=== PATIENT | female | born 1975 | race Caucasian/White ===

== ENCOUNTER 2022-08-27 08:58 | Outpatient (CLI) | payer OTHER, SELFPAY ==
--- NOTE | 2022-08-27 09:15 | CRLHL7_ITS ---
For Patients: As a result of the Century Cures Act, medical imaging exams and procedure reports are released immediately into your electronic medical record. You may view this report before your referring provider. If you have questions, please contact your health care provider. ULTRASOUND-GUIDED BREAST BIOPSY AND POST-BIOPSY DIGITAL MAMMOGRAM FOR BIOPSY MARKER PLACEMENT CLINICAL HISTORY: Indeterminate solid nodule. COMPARISON STUDIES: 08/20/2022. TECHNIQUE: Real-time ultrasound with image documentation was used for targeting the breast lesion. Core biopsy specimens were obtained using an automated gun with a 18-gauge biopsy needle. Post-biopsy CC and ML digital mammograms were obtained to document position of the biopsy marker. CONSENT and TIME OUT: The procedure, risks, and alternatives were explained to the patient and a consent was signed. Oxford Protocol was followed including pre-procedure verification that relevant information/documentation was available, reviewed and properly matched to the patient; consent accurate and complete; and equipment and supplies available. Time Out was conducted just prior to starting procedure to verify the four required elements: patient identity, correct side/site marked (if applicable), procedure, relevant images/results properly labeled and displayed (if applicable). PROCEDURE: The patient was positioned supine on the ultrasound table. The breast was prepped with ChloraPrep. 8 cc of 1 percent lidocaine was used for local anesthesia. Core samples were obtained. A sterile metal biopsy clip was placed percutaneously to stepan the lesion position within the breast. The specimens were placed in 10% formalin and sent to the pathology department. Pressure was held on the biopsy site until all bleeding subsided. The skin incision was closed with Steri-Strips. An ice pack was positioned over the biopsy site. Post-biopsy instructions were reviewed with the patient, and a written copy was given to her. LATERALITY: LEFT. LESION: Lobular hypoechoic solid nodule measuring 1.4 x 0.5 x 0.9 cm at 9 o`clock 1 cm from the nipple. SUSPICION FOR MALIGNANCY: Medium, probable fibroadenoma. NUMBER OF SAMPLES: 5. BIOPSY CLIP SHAPE: Oval. PROXIMITY OF CLIP TO TARGET: Within the lesion. IMPRESSION: Ultrasound-guided breast biopsy. When the pathology report is available, an addendum to this report will be made. ACR not applicable Dictated by Hosea Avery MD @ 08/27/2022 12:48:00 PM jj/Dictated by: Hosea Avery MD @ 08/27/2022 12:48:00 PM (Electronically Signed) ----ADDENDUM---- Pathology consistent with fibroadenoma. Negative for atypia and malignancy. This is concordant. Resume annual BILATERAL screening mammography. Dictated by: Hosea Avery MD @09/01/2022 12:17:35 PM Signed by:?Hosea Avery MD @09/01/2022 1:23:17 PM (Electronic Signature)
--- NOTE | 2022-08-27 10:00 | CRLHL7_ITS ---
For Patients: As a result of the Century Cures Act, medical imaging exams and procedure reports are released immediately into your electronic medical record. You may view this report before your referring provider. If you have questions, please contact your health care provider. PLEASE SEE ULTRASOUND-GUIDED LEFT BREAST BIOPSY PERFORMED SAME DAY CRL:armando roberts/Dictated by: Hosea Avery MD @ 08/27/2022 1:03:00 PM (Electronically Signed)
--- NOTE | 2022-09-03 08:43 | ONC.NURNOTE ---
Pathology reviewed with pt 08/31/22; questions answered.
== END 2022-08-27 08:59 | disposition home or self-care (01) ==
PROVIDERS: PCP Physician Assistant Medical; Visit Provider Physician Assistant Medical
DX: N63.20 Unspecified lump in the left breast, unspecified quadrant (principal); D24.2 Benign neoplasm of left breast; R92.8 Other abnormal and inconclusive findings on diagnostic imaging of breast
CPT/HCPCS: 19083; 77065; 88305; A4648; A4649

== ENCOUNTER 2024-10-16 09:53 | Day surgery (SDC) | payer BC, SELFPAY ==
--- OUTSIDE RECORDS SUMMARY | 2024-10-16 09:58 | XMS_ITS | Clinical Summary ---
Author Organization [facility] Address [address] [place] [id number] Care Team Providers Care Sales Service Assistant Name Role Phone Marlena Montejo Primary Care Provider Allergies Active Allergy Reactions Criticality Noted Date Comments Penicillins Rash 09/17/2014 Medications No known medications Active Problems Problem Noted Date Diagnosed Date Pap smear for cervical cancer screening Overview (09/12/2021): 07/2021 NIL/HPV negative. Plan: Pap/HPV due 07/2026 Encounters Date Type Department Care Team Description 10/13/2024 10:10 AM ROADABILITY MACHINE OPERATOR Office Visit [facility] [address] [place] [address] Marlena Montejo PA Preoperative Exam (L breast) 10/13/2024 Travel 10/10/2024 1:00 PM ROADABILITY MACHINE OPERATOR Office Visit [facility] [address] [place] [address] Viola Ferrell MD Consult (Fibroadenoma of left breast ) 10/10/2024 Travel 10/07/2024 Travel 08/25/2024 3:15 PM ROADABILITY MACHINE OPERATOR Ancillary Procedure [facility] [address] [place] [address] 08/24/2024 Travel 08/24/2024 Telephone [facility] [address] [place] [address] Tech, Mammo 08/21/2024 7:00 AM ROADABILITY MACHINE OPERATOR Ancillary Procedure [facility] [address] [place] [address] 08/21/2024 Travel 08/17/2024 Travel 08/11/2024 7:30 AM ROADABILITY MACHINE OPERATOR Office Visit [facility] [address] [place] [address] Marlena Montejo PA Physical (49 years old) 08/11/2024 Travel 08/09/2024 Travel from Last 3 Months Immunizations Name Administration Dates Next Due COVID-19 vaccine ([employer] 30mcg/0.3mL) PF, MDV 07/16/2021,10/01/2020,09/10/2020 Influenza Virus, Unspecified 06/05/2021 Influenza, CCIIV3 (Age >=6 MO) (Egg Free) 2023 Influenza, IIV4 (=>6mos) MDV 07/01/2020,06/19/20 Influenza, Injectable, Mdck, Quadrivalent, W/preservative 06/10/2023,06/22/2022,06/05/2021 Tdap 08/13/2021 Zoster (Shingrix-RZV, recombinant) 05/19/2024, Family History Medical History Relation Name Comments Good Health Brother 1 Good Health Brother 2 Diabetes Father Heart failure Father Kidney failure Father Other Father prostate Dementia Mother Hyperlipidemia Mother Hypertension Mother Stroke Mother Cancer-breast Other great grandmot her maternal Relation Name Status Comments Brother 1 Brother 2 Father (Age 94) Mother (Age 79) Other Social History Tobacco Use Types Packs/Day Years Used Date Smoking Tobacco: Never Smokeless Tobacco: Never Tobacco Cessation:Counseling Given: Yes Alcohol Use Standard Drinks/Week Comments No 0 (1 standard drink = 0.6 oz pur e alcohol) PHQ-2 Answer Date Recorded PHQ-2 TOTAL SCORE 0 08/11/2024 Social Connections Answer Date Recorded Do you often feel lonely or isolated from those around you? 0 08/11/2024 Financial Resource Strain Answer Date R ecorded Difficulty of Paying Living Expenses 3 08/11/2024 Difficulty of Paying Living Expenses Not on file 08/11/2024 Food Insecurity Answer Date Recorded Do you worry your food will run out before you are able to buy more? 1 08/11/2024 Transportation Needs Answer Date Record ed Does lack of transportation keep you from medica l appointments? 1 08/11/2024 Does lack of transportation keep you from work, meetings or getting things that you need? 1 08/11/2024 Housing Stability Answer Date Recorded What is your housing situation today? 1 08/11/2024 Utilities Answer Date Recorded Do you have trouble paying f or utilities (for example, heat, electricity, water, phone)? 1 08/11/2024 Comments No Sex and Gender Information Value Date Recorded Sex Assigned at Not on file Legal Sex Female 5:24 AM ROADABILITY MACHINE OPERATOR Gender Identity Not on file Sexual Orientation Not on file Obstetrics History Last Filed Vital Signs Vital Sign Reading Time Taken Comments Blood Pressure 134/83 10/13/2024 10:02 AM ROADABILITY MACHINE OPERATOR Pulse 76 10/13/2024 10:02 AM ROADABILITY MACHINE OPERATOR Temperature 36.8 C (98.2 F) 09/17/2017 7:44 AM ROADABILITY MACHINE OPERATOR Respiratory Rate 14 11/19/2022 9:00 AM CDT Oxygen Saturation 97% 10/13/2024 10:02 AM ROADABILITY MACHINE OPERATOR Inhaled Oxygen Concentration - - Weight 105.7 kg (233 lb) 10/13/2024 10:02 AM ROADABILITY MACHINE OPERATOR Height 176.6 cm (5' 9.53) 10/13/2024 10:[address] Body Mass Index 33.89 10/13/2024 10:02 AM ROADABILITY MACHINE OPERATOR Plan of Treatment Health Maintenance Due Date Last Done Comments HIV for age 15-65 1989 Pneumococcal series for age 50+ (1 of 1 - PCV) 02/11/2024 Depression screening for age 12+ 08/11/2025 08/11/2024, 08/10/2023, 08/13/2020, Additional history exists Mammogram for age 45-75 08/21/2025 08/21/20 24, 08/17/2023, 08/17/2022, Additional history exists BMI (ht and wt on same day) for age 18+ 10/13/2025 10/13/2024, 08/11/2024, 08/10/2023, Additional history exists Pap test for age 21-65 08/13/2026 , 08/13/2021, 09/17/2017, Additional history exists Lipids for age 45-75 08/11/2029 08/11/2024, 08/10/2023, 08/07/2022, Additional history exists Tetanus booster 08/13/2031 08/13/2021 Colonoscopy through age 75 11/20/203211/20, 11/19/2022, 11/19/2022 Tdap Completed 08/13/2021 Hepatitis C screening for ag e 18-79 Completed 08/07/2022 Zoster (shingles) series for age 50+ Completed 05/19/2024, 02/12/2024 COVID-19 vaccine series Completed 06/14/20, 06/10/2023, 06/22/2022, Additional history exists Influenza for age 50-64 Completed 06/14/20, 06/10/2023, 06/22/2022, Additional history exists Procedures Procedure Name Priority Date/Time Associated Diagnosis Comments US BREAST UNILATERAL LEFT LIMITED VIANNEY 08/25/2024 3:17 PM ROADABILITY MACHINE OPERATOR Abnormal mammogram XR MAMMO DELVIN BILAT SCREEN Routine 08/21/2024 7:16 AM ROADABILITY MACHINE OPERATOR Encounter for screening mammogram for malignant neoplasm of breast LIPID PANEL W REFLEX MEASURED LDL Routine 08/11/2024 8:28 AM ROADABILITY MACHINE OPERATOR Screening cholesterol level BASIC METABOLIC PANEL Routine 08/11/2024 8:28 AM ROADABILITY MACHINE OPERATOR Screening for diabetes mellitus COLONOSCOPY SCREENING Routine 11/19/2022 7:23 AM CDT Screening for colon cancer ANTI HCV Routine 08/07/2022 9:20 AM ROADABILITY MACHINE OPERATOR Need for hepatitis C screening test HPV HIGH RISK Routine 08/13/2021 8:42 AM ROADABILITY MACHINE OPERATOR Screening for cervical cancer from Last 3 Months or Most Recently Relevant to Health Maintenance Results * US BREAST UNILATERAL LEFT LIMITED (08/25/2024 3:17 PM ROADABILITY MACHINE OPERATOR) Anatomical Region Laterality Modality BREASTS, Breast Left, Breast Right Left Ultrasound 08/25/2024 3:4 0 PM ROADABILITY MACHINE OPERATOR Impressions 08/25/2024 3:54 PM ROADABILITY MACHINE OPERATOR Enlarging fibroadenoma LEFT breast 9 o'clock 1 cm from the nipple measuring up to 4.6 cm. RECOMMENDATIONS: Surgical consultation for consideration of excision. BI-RADS Category 2. Benign Dictated by: Hosea Avery MD @08/25/2024 3:40:14 PM CRL/djw Narrative 08/25/2024 3:54 PM ROADABILITY MACHINE OPERATOR For Patients: As a result of the Cures Act, medical imaging exams and procedure reports are released immediately into your electronic medical record. You may view this report before your referring provider. If you have questions, please contact your health care provider. ULTRASOUND BREAST UNILATERAL LEFT LIMITED, 08/25/2024 CLINICAL HISTORY: LEFT breast mass/asymmetry. COMPARISON: 08/21/2024, 08/17/2023, 08/20/2022, 08/17/2022. TECHNIQUE: Real-time ultrasound imaging of LEFT breast with imaging documentation. FINDINGS: Targeted sonogram 9 o'clock, 1 cm from the nipple performed. In this location, there is a macrolobular heterogeneously hypoechoic solid mass containing a biopsy clip. This mass measures 3.3 x 2.7 x 4.6 cm. Prior pathology from 08/27/2022 was consistent with fibroadenoma. On 08/20/2022, this mass measured 1.7 x 1.1 x 1.5 cm. us Marlena MARSH US Final R esult * XR MAMMO DELVIN BILAT SCREEN (08/21/2024 7:16 AM ROADABILITY MACHINE OPERATOR) Anatomical Region Laterality Modality BREASTS, Breast Left, Breast Right Bilateral Mammography 08/21/2024 2:13 PM ROADABILITY MACHINE OPERATOR Impressions 08/21/2024 3:00 PM ROADABILITY MACHINE OPERATOR LEFT breast asymmetry/mass. RECOMMENDATIONS: Ultrasound LEFT breast. A member of the health care team will contact the patient to schedule the required additional imaging appointment. BI-RADS Category 0: Incomplete: Need Additional Imaging Evaluation Dictated by: Hosea Avery MD @08/21/2024 2:13:34 PM CRL:rcd PATIENTS: You will also receive a letter with your examination results in an easy to read format. If you have questions about your results, please contact your referring provider. Narrative 08/21/2024 3:00 PM ROADABILITY MACHINE OPERATOR For Patients: As a result of the 21st Century Cures Act, medical imaging exams and procedure reports are released immediately into your electronic medical record. You may view this report before your referring provider. If you have questions, please contact your health care provider. BILATERAL DIGITAL SCREENING MAMMOGRAM WITH COMPUTER-AIDED DETECTION AND TOMOSYNTHESIS, 08/21/2024 CLINICAL HISTORY: Routine screening exam. COMPARISON: 08/17/2023, 08/17/2022, 08/13/2021, 08/02/2020. TECHNIQUE: Digital mammogram in CC and MLO projections including computer-aided detection (CAD). Tomosynthesis was used in this interpretation. BREAST COMPOSITION: There are scattered areas of fibroglandular density. FINDINGS: RIGHT Breast: No suspicious findings. LEFT Breast: Increased size of previously biopsied x2 fibroadenomata within the subareolar LEFT breast. us Marlena MARSH MAMMO Final R esult * (ABNORMAL) LIPID PANEL W REFLEX MEASURED LDL (08/11/2024 8:28 AM ROADABILITY MACHINE OPERATOR) CHOLESTEROL, TOTAL 186 <200 mg/dL [facility] HDL CHOLESTEROL 47(L) > OR = 50 mg/dL [facility] TRIGLYCERIDES 94 <150 mg/dL [facility] LDL-CHOLESTEROL 119(H) mg/dL (calc) [facility] Comment: Reference range: <100 Desirable range <100 mg/dL for primary prevention; <70 mg/dL for patients with CHD or diabetic patients with > or = 2 CHD risk factors. LDL-C is now calculated using the Bennett calculation, which is a validated novel method providing better accuracy than the Friedewald equation in the estimation of LDL-C. Marlon REYES et al. EDVIN. 2013;310(19): 5022-6204 (http://education.Ultimate Shopper.Good Photo/faq/HUT934) CHOL/HDLC RATIO 4.0 <5.0 (calc) [facility] NON HDL CHOLESTEROL 139(H) <130 mg/dL (calc) [facility] Comment: For patients with diabetes plus 1 major ASCVD risk factor, treating to a non-HDL-C goal of <100 mg/dL (LDL-C of <70 mg/dL) is considered a therapeutic option. Blood BLOOD SPECIMEN / Unknown 08/11/2024 8:28 AM ROADABILITY MACHINE OPERATOR 08/11/2024 8:29 AM ROADABILITY MACHINE OPERATOR Marlena MARSH CHEMISTRY Final R esult [facility] [address] [place] [address], [place] [address] [place] [address] * BASIC METABOLIC PANEL (08/11/2024 8:28 AM ROADABILITY MACHINE OPERATOR) Pathologist [facility] GLUCOSE 92 65 - 99 mg/dL [facility] Comment: Fasting reference interval UREA NITROGEN (BUN) 12 7 - 25 mg/dL [facility] CREATININE 0.73 0.50 - 1.03 mg/dL [facility] EGFR 100 > OR = 60 mL/min/1. 73m2 [facility] BUN/CREATININE RATIO SEE NOTE: 6 - 22 (calc) [facility] Comment: Not Reported: BUN and Creatinine are within reference range. SODIUM 139 135 - 146 mmol/L [facility] POTASSIUM 4.7 3.5 - 5.3 mmol/L [facility] CHLORIDE 107 98 - 110 mmol/L [facility] CARBON DIOXIDE 23 20 - 32 mmol/L [facility] ELECTROLYTE BALANCE 9 7 - 17 mmol/L (calc) [facility] CALCIUM 8.9 8.6 - 10.4 mg/dL [facility] Blood BLOOD SPECIMEN / Unknown 08/11/2024 8:28 AM ROADABILITY MACHINE OPERATOR 08/11/2024 8:29 AM ROADABILITY MACHINE OPERATOR Marlena Montejo PA CHEMISTRY Final R esult [facility] [address] [place] [address], [facility] [address] [place] [address] * COLONOSCOPY (11/19/2022 7:36 AM CDT) 11/19/2022 7:36 AM CDT Narrative Transcriptions Marlon Drummond MD - 11/19/2022 8:46 AM CDT Patient Name: Venus Gibbs Procedure Date: 11/19/2022 Gender: Female Date of : 1975 Admit Type: Outpatient Procedure: Colonoscopy Proceduralist: Marlon Drummond MD , Fabiana Ledbetter (Nurse), Sudha Toro RN (Nurse) Referring MD: Marlena Montejo Indications/Pre-Op Diagnosis: Screening for colorectal malignant neoplasm, This is the patient's first colonoscopy Medications: Fentanyl 100 micrograms IV, Midazolam 4 mgIV Procedure Description: The patient had risks, benefits and alternatives explained to andgave informed consent. The patient had a stable cardiopulmonary status and judged an adequate candidate for conscious sedation. The [id number] was passed through the anus and advanced to the cecum, identified by appendiceal orifice and ileocecal valve. Thecolonoscopy was performed without difficulty. The patient tolerated the procedure well. The quality of the bowel preparation was good. The ileocecal valve, appendiceal orifice, and rectum were photographed. Complications: No immediate complications. Estimated Blood Loss & Specimen: Estimated blood loss: none. Specimen collected - None Findings: The perianal and digital rectal examinations were normal. The entire examined colon appeared normal on direct and retroflexion views. Impressions/Post-Op Diagnosis: - The entire examined colon is normal on direct and retroflexionviews. - No specimens collected. Recommendation: - Patient has a contact number available for emergencies. The signsand symptoms of potential delayed complications were discussed with the patient. Return to normal activities tomorrow. Written discharge instructions were provided to the patient. - Resume previous diet. - Continue present medications. - Repeat colonoscopy in 10 years for screening purposes. Moderate Sedation: A time out was performed before the procedure. Moderate (conscious) sedation was administered by the endoscopy nurse and supervised bythe endoscopist. The following parameters were monitored: oxygensaturation, heart rate, blood pressure, EKG, CO2, respiratory rate, adequacy of pulmonary ventilation and reponse to care. Please refer to the patient's medical record flowsheets and nursing notes for moderate sedation details. Total physician intraservice time was 14 minutes. Marlon Drummond MD 11/19/2022 8:46:26 AM This report has been signed electronically. Note Initiated On: 11/19/2022 7:36 AM Procedure Code(s): --- Professional --- 55288, Colonoscopy, flexible; diagnostic, including collection of specimen(s) bybrushing or washing, when performed (separateprocedure) Diagnosis Code(s): --- Professional --- Z12.11, Encounter for screening formalignant neoplasm of colon CPT copyright 2020 [employer]. All rights reserved. The codes documented in this report are preliminary and upon dumper bailer operator reviewmay be revised to meet current compliance requirements. Scope In: 8:21:06 AM Scope Withdrawal Time 0 hours 6 minutes 19 seconds Scope Out: 8:31:19 AM us Marlon Drummond MD PROCEDURE ORD Final Res ult * ANTI HCV (08/07/2022 9:20 AM ROADABILITY MACHINE OPERATOR) HEPATITIS C ANTIBODY Non-React markus Non-React markus 08/09/2022 10:07 AM ROADABILITY MACHINE OPERATOR [facility] Comment:Antibodies to HCV no t detected; does not exclude the possibility of exposure to HCV. Blood BLOOD SPECIMEN / Unknown Venipuncture / Unknown 08/07/2022 9:20 AM ROADABILITY MACHINE OPERATOR 08/07/2022 9:21 AM ROADABILITY MACHINE OPERATOR Marlena MARSH SEND OUTS Final R esult [facility] [address] * HPV HIGH RISK (08/13/2021 8:42 AM ROADABILITY MACHINE OPERATOR) TYPE 16 Negative Negative 08/15/2021 10:39 AM ROADABILITY MACHINE OPERATOR [facility] TYPE 18 Negative Negative 08/15/2021 10:39 AM ROADABILITY MACHINE OPERATOR [facility] OTHER HIGH RISK TYPES Negative Negative 08/15/2021 10:39 AM ROADABILITY MACHINE OPERATOR [facility] Other (Cervical) Non-Blood / Unknown 08/13/2021 8:42 AM ROADABILITY MACHINE OPERATOR 08/13/2021 3:01 PM ROADABILITY MACHINE OPERATOR Narrative [facility] - 08/15/2021 10:39 AM ROADABILITY MACHINE OPERATOR HPV types 16, 18, 31, 33, 35, 39, 45, 51, 52, 56, 58, 59, 66 and 68 DNA were undetectable or below the pre-set threshold. Methodology: Shaneka Toney 4800 HPV Test Marlena MARSH MICROBIOLOGY Final R esult [facility] [address] from Last 3 Months or Most Recently Relevant to Health Maintenance Insurance [address] [place] [id number] [facility] Care Teams Sales Service Assistant Relationship Specialty Start Date End Date Marlena Montejo PA [address] [place] [address] PCP - General Family Practice 09/17/14
[2024-10-16 10:29] VITALS: BP 124/79; PULSE 83; RESP 16; TEMP 37.2; O2SAT 93
[2024-10-16 10:31] VITALS: BMI 34.4
[2024-10-16 10:31] LABS: Ur HCG Qualitative* Negative (Negative)
[2024-10-16] MEDS: SODIUM CHLORIDE 0.9 % (FLUSH) 10 ML SYRINGE IVF (10:45)
[2024-10-16] MEDS: 0.9 % SODIUM CHLORIDE 500 ML 500 ML 100 ML IV (10:45)
[2024-10-16] MEDS: CLINDAMYCIN 900 MG/50 ML-D5W IVPB (13:07)
--- NOTE | 2024-10-16 13:07 | P.GSOP_ITS ---
Operative Note Date of procedure: 10/16/24 Pre-op diagnosis: Left breast fibroadenoma Post-op diagnosis: Same Type of Procedure: Excisional biopsy left breast fibroadenoma Indications: The patient is a 49-year-old female who has a several year history of a left breast fibroadenoma. This has previously been biopsied with core needle biopsy. On her most recent mammogram this was known to have markedly enlarged in size when compared to the prior year. For this reason excision was recommended. The patient agreed to proceed after discussion of risks. Procedure Description: After discussing the risks and benefits of the procedure, the patient signed informed consent.? The operative site was marked and the patient was brought to the operating room and placed on the operating table in supine position.? Care was taken to pad the patient's pressure points.?? The patient was then given sedation by anesthesia.?? The operative site was then prepped and draped in the usual sterile fashion.? A time-out was then performed. Local anesthetic was injected into the skin and subcutaneous tissue overlying the palpable mass. A curvilinear incision was made along the areolar border on the medial aspect of the breast. Dissection was taken down into the subcutaneous fat. The mass was palpable and encountered immediately. I began by dissecting this free from subareolar area. The patient has history of prior breast reduction in so care was taken to avoid devascularization of the nipple- areolar complex. The mass was then dissected free from the surrounding breast tissue using cautery. This was then sent for mammography and to pathology. Hemostasis appeared excellent. The wound was then closed with 3-0 Vicryl dermal and 4-0 Monocryl subcuticular sutures. Sterile dressings were then applied. ? The patient was then woken and transported to the recovery area in stable condition. ? The patient tolerated the procedure well. Findings: Large, greater than 4 cm left breast mass Anesthesia: MAC Surgeon: Viola Ferrell MD Estimated blood loss (mL): 2 Specimen: Other Additional Specimen Information: Left breast mass, fibroadenoma Condition: stable Disposition: PACU
--- NOTE | 2024-10-16 13:07 | W.PM.H&PU ---
History & Physical Update History & Physical Update H&P Reviewed and patient assessed: No changes noted
[2024-10-16] MEDS: LIDOCAINE 1% MDV 10 ML INJECTION (13:14)
[2024-10-16] MEDS: BUPIVACAINE 0.25% 30 ML 10 ML INJECTION (13:14)
[2024-10-16 13:42] VITALS: BP 100/61; PULSE 80; RESP 16; TEMP 36.2; O2SAT 93
--- NOTE | 2024-10-16 13:49 | P.ANES_ITS ---
Anesthesia Charges Start Date/Time Anesthesia Start Date: 10/16/24 Anesthesia Start Time: 12:56 Stop Date/Time Anesthesia Stop Date: 10/16/24 Anesthesia Stop Time: 13:45 Coding CPT Codes CPT Codes: ANESTH SKIN EXT/PER/ATRUNK - 03593 ([id number]) P2 - PATIENT W/MILD SYST DISEASE, QK - GRASSLAND CONSERVATIONIST 2-4 CNCRNT ANES PROC, QX - FUNCTIONAL ANALYST SVC W/ MD MED DIRECTION
--- NOTE | 2024-10-16 13:49 | W.ANESCHARGE ---
Anesthesia Charges Start Date/Time Anesthesia Start Date: 10/16/24 Anesthesia Start Time: 12:56 Stop Date/Time Anesthesia Stop Date: 10/16/24 Anesthesia Stop Time: 13:45 Coding CPT Codes CPT Codes: ANESTH SKIN EXT/PER/ATRUNK - 12495 ([id number]) P2 - PATIENT W/MILD SYST DISEASE, QK - CARTRIDGE FEEDER 2-4 CNCRNT ANES PROC, QX - CLEANING ATTENDANT SVC W/ MD MED DIRECTION
[2024-10-16 14:00] VITALS: BP 104/59; PULSE 89; RESP 16; O2SAT 92
[2024-10-16 14:15] VITALS: BP 110/68; PULSE 76; RESP 16; O2SAT 95
[2024-10-16 14:30] VITALS: BP 104/68; PULSE 67; RESP 16; O2SAT 96
== END 2024-10-16 14:58 | disposition home or self-care (01) ==
PROVIDERS: Anesthesiology; PCP Physician Assistant Medical; Visit Provider Surgery
PROC: (CPT 19120; principal; 2024-10-16 11:00)
DX: D24.2 Benign neoplasm of left breast (principal)
CPT/HCPCS: 19120; 00400; 81025; 88305; J2003; J0665; J0736; J1100; J2250; J2405; J2704; J3010; J3490; J7030